=== PATIENT | female | born 1985 | race American Indian/Alaskan Native ===

== ENCOUNTER 2017-08-19 08:43 | Inpatient (IN) | payer MEDICARE ==
[2017-08-19] MEDS ORDERED: TYLENOL PO ONE (11:42)
[2017-08-19] MEDS ORDERED: ZOFRAN IV ONE (11:42)
[2017-08-19] MEDS ORDERED: DILAUDID IV ONE ×3 (11:42→14:37)
[2017-08-19] MEDS ORDERED: BENADRYL PO ONE (11:42)
--- NOTE | 2017-08-19 11:43 | Emergency Department Report ---
ED General Adult HPI - General Chief complaint: Sickle Cell Crisis Stated complaint: SICKLE CELL Time Seen by Provider: 08/19/17 11:11 Source: patient, RN notes reviewed Mode of arrival: Ambulatory Limitations: No Limitations - History of Present Illness Initial comments: This is a 31-year-old female who was previously known to this provider. Her hematology doctor is Dr. Hinton. She reports a past medical history of sickle cell disease history of cholecystectomy in the distant past. Presents to the ER complaining of sickle cell crisis. Complains of total body pain, aches and arthralgIas. Her symptoms have been going on for a week. They're getting worse. Pain increases with palpation, and it decreases with rest. Patient admits to cough, but denies urinary symptoms. She describes central chest pain. There is positive nausea and vomiting. There is intermittent shortness of breath. n. There is no leg swelling. Patient does not think that she's had a fever. -: Gradual, week(s) Location: chest, back, left, right, upper extremity, lower extremity Severity scale (0 -10): 9 Consistency: intermittent Improves with: medication, rest Worsens with: movement Associated Symptoms: chest pain, cough, malaise, weakness. denies: confusion, diaphoresis, fever/chills, headaches, loss of appetite, rash, seizure, shortness of breath, syncope - Related Data Allergies Allergy/AdvReac Type Severity Reaction Status Date / Time cefuroxime [From Ceftin] Allergy Hives Verified 08/19/17 09:00 morphine Allergy Vomiting Verified 08/19/17 09:00 ED Review of Systems ROS: Stated complaint: SICKLE CELL Other details as noted in HPI Comment: All other systems reviewed and negative ED Past Medical Hx - Past Medical History Previous Medical History?: Yes Hx Sickle Cell Disease: Yes Hx Asthma: Yes Additional medical history: Fibromyalgia - Surgical History Past Surgical History?: Yes Hx Cholecystectomy: Yes Additional Surgical History: tubal ligation. tonsillectomy. port to left chest (current). port to right chest (discontinued) - Social History Smoking Status: Light Tobacco Smoker Substance Use Type: None ED Physical Exam - General Limitations: No Limitations General appearance: alert, in no apparent distress - Head Head exam: Present: atraumatic, normocephalic - Eye Eye exam: Present: normal appearance, EOMI. Absent: nystagmus - ENT ENT exam: Present: normal exam, normal orophraynx, mucous membranes moist, normal external ear exam - Neck Neck exam: Present: normal inspection, full ROM - Respiratory Respiratory exam: Present: normal lung sounds bilaterally, chest wall tenderness. Absent: respiratory distress - Cardiovascular Cardiovascular Exam: Present: regular rate, normal rhythm, normal heart sounds. Absent: systolic murmur, diastolic murmur, rubs, gallop - GI/Abdominal GI/Abdominal exam: Present: soft, normal bowel sounds. Absent: distended, tenderness, guarding, rebound, rigid, pulsatile mass - Extremities Exam Extremities exam: Present: normal inspection, full ROM, normal capillary refill , other (there is no palpable cord. There is negative Homans sign. There is reproducible along bony tenderness. Compartments are soft.). Absent: pedal edema, joint swelling, calf tenderness - Back Exam Back exam: Present: normal inspection, full ROM, paraspinal tenderness, vertebral tenderness. Absent: tenderness, CVA tenderness (R) - Neurological Exam Neurological exam: Present: alert, oriented X3, CN II-XII intact, other ( Extraocular movements intact. Tongue midline. No facial droop. Facial sensation intact to light touch in the V1, V2, V3 distribution bilaterally. 5 and 5 strength in 4 extremities.. Sensation is intact to light touch in 4 extremities.). Absent: motor sensory deficit - Psychiatric Psychiatric exam: Present: normal affect, normal mood - Skin Skin exam: Present: warm, dry, intact, normal color. Absent: rash ED Course Vital Signs 08/19/17 08/19/17 08/19/17 09:00 11:06 11:15 Temperature 99.2 F Pulse Rate 91 H Respiratory 18 Rate Blood Pressure 107/66 114/76 108/70 Blood Pressure [Left] O2 Sat by Pulse 99 100 Oximetry 08/19/17 08/19/17 08/19/17 11:27 11:31 11:45 Temperature 99.2 F Pulse Rate 70 Respiratory 20 Rate Blood Pressure 101/55 112/74 Blood Pressure 108/70 [Left] O2 Sat by Pulse 100 98 100 Oximetry 08/19/17 08/19/17 08/19/17 12:00 12:15 12:31 Temperature Pulse Rate Respiratory Rate Blood Pressure 121/79 109/61 105/61 Blood Pressure [Left] O2 Sat by Pulse 100 99 100 Oximetry 08/19/17 08/19/17 08/19/17 12:45 13:01 13:15 Temperature Pulse Rate Respiratory Rate Blood Pressure 105/61 117/76 112/73 Blood Pressure [Left] O2 Sat by Pulse 100 100 97 Oximetry - Reevaluation(s) Reevaluation #1: 08/19/17 13:53 D-dimer negative. Still having pain. Additional hydromorphone ordered for pain. Reevaluation #2: 08/19/17 14:38 X-ray of the chest is clear. Still having persistent pain. Still having nausea. Patient will be admitted to the hospital for sickle cell crisis. Reevaluation #3: 08/19/17 14:40 Dr. Castillo accepted the patient to the medical service. ED Medical Decision Making - Lab Data Result diagrams: 08/19/17 13:12 08/19/17 13:12 Vital Signs 08/19/17 08/19/17 09:00 11:27 Temperature 99.2 F 99.2 F Pulse Rate 91 H 70 Respiratory 18 20 Rate Blood Pressure 107/66 Blood Pressure 108/70 [Left] O2 Sat by Pulse 99 100 Oximetry Lab Results 08/19/17 08/19/17 08/19/17 Range/Units 13:12 13:12 13:12 WBC 14.7 H (4.5-11.0) K/mm3 RBC 4.58 (3.65-5.03) M/mm3 Hgb 8.8 L (10.1-14.3) gm/dl Hct 26.5 L (30.3-42.9) % MCV 58 L (79-97) fl MCH 19 L (28-32) pg MCHC 33 (30-34) % RDW 25.4 H (13.2-15.2) % Plt Count 212 (140-440) K/mm3 Percent Retic 1.77 (0.78-2.58) % PT 14.0 (12.2-14.9) Sec. INR 1.03 (0.87-1.13) APTT 72.2 H* (24.2-36.6) Sec. D-Dimer (0-234) ng/mlDDU Lactate Dehydrogenase (91-180) units/L Total Creatine Kinase (30-135) units/L CK-MB (CK-2) (0.0-4.0) ng/mL CK-MB (CK-2) Rel Index (0-4) Troponin T (0.00-0.029) ng/mL HCG, Qual Negative (Negative) 08/19/17 08/19/17 08/19/17 Range/Units 13:12 13:12 13:12 WBC (4.5-11.0) K/mm3 RBC (3.65-5.03) M/mm3 Hgb (10.1-14.3) gm/dl Hct (30.3-42.9) % MCV (79-97) fl MCH (28-32) pg MCHC (30-34) % RDW (13.2-15.2) % Plt Count (140-440) K/mm3 Percent Retic (0.78-2.58) % PT (12.2-14.9) Sec. INR (0.87-1.13) APTT (24.2-36.6) Sec. D-Dimer < 135.00 (0-234) ng/mlDDU Lactate Dehydrogenase 125 (91-180) units/L Total Creatine Kinase 31 (30-135) units/L CK-MB (CK-2) < 1.0 (0.0-4.0) ng/mL CK-MB (CK-2) Rel Index 3.2 (0-4) Troponin T < 0.010 (0.00-0.029) ng/mL HCG, Qual (Negative) - EKG Data -: EKG Interpreted by Co EKG shows normal: sinus rhythm, axis, intervals, QRS complexes, ST-T waves - EKG Data When compared to previous EKG there are: previous EKG unavailable - Radiology Data Radiology results: pending - Medical Decision Making Differential diagnosis, including but not limited to: Sickle cell crisis, pulmonary embolus, pneumonia, acute lung injury/acute chest syndrome Assessment and plan: 21-year-old female, sickle cell patient, looks uncomfortable, low-grade oral temperature, refused rectal temperature would sickle cell crisis, and chest pain and chest wall pain. Patient's pain will be treated aggressively. EKG is initially unremarkable. Laboratory studies pending. D-dimer is pending. Low risk by well's criteria. perc negative. Low risk by Heart score, FRANCISCO score, assuming negative troponin. Critical care attestation.: If time is entered above; I have spent that time in minutes in the direct care of this critically ill patient, excluding procedure time. ED Disposition Clinical Impression: Sickle cell pain crisis, Nausea and vomiting Disposition: 09 OP ADMIT IP TO THIS HOSP Is pt being admited?: Yes Does the pt Need Aspirin: Yes Condition: Good Referrals: PRIMARY CARE,MD [Primary Care Provider] - 3-5 Days
[2017-08-19] MEDS ORDERED: DILAUDID ONE ×3 (13:02→13:59)
[2017-08-19] MEDS: D5NS 0.2% 1,000 ML IV SCH ×2 (13:10→18:05)
[2017-08-19 13:27] LABS: Hematocrit 26.5 % (30.3-42.9); Hemoglobin 8.8 gm/dl (10.1-14.3); Mean Corpuscular HGB Conc 33 % (30-34); Platelet Count 212 K/mm3 (140-440); Red Blood Count 4.58 M/mm3 (3.65-5.03)
[2017-08-19 13:28] LABS: Mean Corpuscular Hemoglobin 19 pg (28-32); Mean Corpuscular Volume 58 fl (79-97); Red Cell Distribution Width 25.4 % (13.2-15.2)
[2017-08-19 13:36] LABS: INR 1.03 (0.87-1.13)
[2017-08-19 13:40] LABS: Partial Thromboplastin Time 72.2 Sec. (24.2-36.6)
[2017-08-19 13:46] LABS: Creatine Kinase MB < 1.0 ng/mL (0.0-4.0)
[2017-08-19 13:59] LABS: Total Cells Counted 100
[2017-08-19 14:00] LABS: Anisocytosis 2+; Hypochromasia 2+; Poikilocytosis 3+
[2017-08-19 14:01] LABS: Stomatocytes 1+; Target Cells 1+; Tear Drop Cells Few
[2017-08-19 14:03] LABS: BUN/Creatinine Ratio 33; Blood Urea Nitrogen 13 mg/dL (7-17); Calcium 7.8 mg/dL (8.4-10.2); Hemolysis Index 1; Large Platelets Few; Platelet Estimate Cons
[2017-08-19] MEDS ORDERED: REGLAN IV ONE (14:37)
[2017-08-19] MEDS ORDERED: BABY ASPIRIN PO ONE (14:40)
[2017-08-19] MEDS ORDERED: ZOFRAN IV PRN (14:49)
[2017-08-19] MEDS ORDERED: PERCOCET 5/325 PO PRN ×2 (14:49→21:00)
[2017-08-19] MEDS ORDERED: SODIUM CHLORIDE FLUSH SYRINGE 10 ML IV PRN (14:49)
[2017-08-19] MEDS ORDERED: PROVENTIL IH PRN (14:49)
[2017-08-19] MEDS ORDERED: TYLENOL PO PRN (14:49)
--- NOTE | 2017-08-19 14:49 | History and Physical Report ---
History of Present Illness Chief complaint: Im hurting all over History of present illness: 31 YO Female with SCD, Obesity, Fibromyalgia presents to ED for evaluation. Pt states that she has experienced generalized body pain over the past 1 week, with worsening symptoms over the past 3 days. Pt acknowledges nausea, and body aches. Pt ran out of pain medication 3 days ago. Pt denies fever, chills, CP, Palpitations, Syncope, BRBPR, unintentional weight loss, unilateral leg swelling , calf pain, hemoptysis, night sweats, bone pain, shortness of breath, syncope, recent ill contacts, or foreign travel. Pt seen and evaluated in ED and found to have sickle cell crisis as well as SIRS. Pt admitted to medical floor. Past History Past Medical History: other (Fibromyalgia, SCD, Asthma) Past Surgical History: cholecystectomy, tonsillectomy, Other (tubal ligation, Left Chest port) Social history: single, smoking Family history: hypertension Medications and Allergies Allergies Allergy/AdvReac Type Severity Reaction Status Date / Time cefuroxime [From Ceftin] Allergy Hives Verified 08/19/17 09:00 morphine Allergy Vomiting Verified 08/19/17 09:00 Active Meds: Active Medications Dextrose/Sodium Chloride (D5ns 0.2%) 1,000 mls @ 250 mls/hr IV DIRECT BOOM Last Admin: 08/19/17 13:10 Dose: 250 mls/hr Review of Systems Constitutional: chronic pain, no weight loss, no weight gain, no fever, no chills Ears, nose, mouth and throat: no ear pain, no ear discharge, no tinnitis, no decreased hearing, no nose pain, no nasal congestion, no nasal discharge Breasts: no change in shape, no swelling, no mass Cardiovascular: no chest pain, no orthopnea, no palpitations, no rapid/ irregular heart beat, no edema Respiratory: no cough, no cough with sputum, no excessive sputum, no hemoptysis , no shortness of breath Gastrointestinal: nausea, no vomiting Genitourinary Female: no pelvic pain, no flank pain, no menorrhagia, no dysuria , no urinary frequency, no urgency Rectal: no pain, no incontinence Musculoskeletal: no neck stiffness, no neck pain, no shooting arm pain, no arm numbness/tingling, no low back pain, no shooting leg pain, no leg numbness/ tingling Integumentary: no rash, no pruritis, no redness, no sores, no wounds, no jaundice Neurological: no transient paralysis, no paralysis, no weakness, no parathesias , no numbness, no tingling, no seizures, no syncope Psychiatric: no anxiety, no memory loss, no change in sleep habits, no sleep disturbances, no insomnia, no hypersomnia, no change in appetite, no change in libido Endocrine: no cold intolerance, no heat intolerance, no polyphagia, no excessive thirst, no polydipsia, no weight change Hematologic/Lymphatic: no easy bruising, no easy bleeding, no lymphadenopathy Allergic/Immunologic: no urticaria, no allergic rhinitis, no wheezing, no persistent infections, no anaphylaxis Exam - Constitutional Vitals: Temp Pulse Resp BP Pulse Ox 99.2 F 70 20 112/73 97 08/19/17 11:27 08/19/17 11:27 08/19/17 11:27 08/19/17 13:15 08/19/17 13:15 General appearance: Present: mild distress - EENT Eyes: Present: PERRL ENT: hearing intact, clear oral mucosa - Neck Neck: Present: supple, normal ROM - Respiratory Respiratory effort: normal Respiratory: bilateral: CTA - Cardiovascular Heart Sounds: Present: S1 & S2. Absent: rub, click - Extremities Extremities: pulses symmetrical, No edema Peripheral Pulses: within normal limits - Abdominal General gastrointestinal: Present: soft, non-tender, non-distended, normal bowel sounds Female genitourinary: Present: normal - Integumentary Integumentary: Present: clear, warm, dry - Musculoskeletal Musculoskeletal: gait normal, strength equal bilaterally - Psychiatric Psychiatric: appropriate mood/affect, intact judgment & insight - Neurologic Neurologic: CNII-XII intact, moves all extremities Results - Labs CBC & Chem 7: 08/19/17 13:12 08/19/17 13:12 Labs: Abnormal lab results 08/19/17 08/19/17 08/19/17 Range/Units 13:12 13:12 13:12 WBC 14.7 H (4.5-11.0) K/mm3 Hgb 8.8 L (10.1-14.3) gm/dl Hct 26.5 L (30.3-42.9) % MCV 58 L (79-97) fl MCH 19 L (28-32) pg RDW 25.4 H (13.2-15.2) % Seg Neutrophils # Man 9.8 H (1.8-7.7) K/mm3 APTT 72.2 H* (24.2-36.6) Sec. Sodium 134 L (137-145) mmol/L Potassium 3.2 L (3.6-5.0) mmol/L Creatinine 0.4 L (0.7-1.2) mg/dL Glucose 207 H (65-100) mg/dL Calcium 7.8 L (8.4-10.2) mg/dL Assessment and Plan - Patient Problems (1) Sickle cell pain crisis Current Visit: Yes Status: Acute Plan to address problem: IVF resuscitation, pain control, hematology consulted, resume prehospital therapy with hydroxyurea, folic acid as per hematology service. (2) SIRS (systemic inflammatory response syndrome) Current Visit: Yes Status: Acute Plan to address problem: Empiric IV antibiotics, CBC, Chest X ray, repeat CBC (3) Nicotine dependence unspecified, with withdrawal Current Visit: Yes Status: Acute Qualifiers: Nicotine product type: cigarettes Qualified Code(s): F17.213 - Nicotine dependence, cigarettes, with withdrawal Plan to address problem: supportive care, smoking cessation counseling (4) DVT prophylaxis Current Visit: Yes Status: Acute Plan to address problem: SCD to ble while in bed
[2017-08-19] MEDS ORDERED: NACL 0.9% 1000 ML 1,000 ML IV ONE ×2 (14:51)
--- NOTE | 2017-08-19 14:53 | XRay Report ---
AP CHEST: HISTORY: chest pain No comparison. A left [id number] terminates at the cavoatrial junction. AP view of the chest demonstrates a normal mediastinal and cardiac contour with clear lungs and normal bony and soft tissue structures. IMPRESSION: Unremarkable AP chest.
[2017-08-19] MEDS ORDERED: NACL 0.45% 1000 ML 1,000 ML IV SCH (15:00)
[2017-08-19] MEDS ORDERED: OxyCONTIN PO PRN (20:07)
[2017-08-19] MEDS ORDERED: NON-FORMULARY (Oxycodone Hcl/Acetaminophen [Percocet 10/325 Mg] 1 EACH) PO PRN (20:07)
[2017-08-19] MEDS ORDERED: ROXICODONE PO PRN (20:35)
--- NOTE | 2017-08-19 22:21 | Consultation ---
History of Present Illness - Reason for Consult Consult date: 08/19/17 SCD/sickel pain. Requesting physician: RADHA GARZA - History of Present Illness Thank you for this consult, patient seen/examined, record reviewed, case d/w her.Patient presented to the Er with pain crisis, admitted from sxs management .WBC elevated.she will need pain management, hydration, monitor labs. Past History Past Medical History: other (Fibromyalgia, SCD, Asthma) Past Surgical History: cholecystectomy, tonsillectomy, Other (tubal ligation, Left Chest port) Social history: single, smoking Family history: hypertension Medications and Allergies Allergies Allergy/AdvReac Type Severity Reaction Status Date / Time cefuroxime [From Ceftin] Allergy Hives Verified 08/19/17 09:00 morphine Allergy Vomiting Verified 08/19/17 09:00 Home Medications Medication Instructions Recorded Confirmed Last Taken Type Cyanocobalamin [Vitamin B-12] 1,000 mcg SUB-Q DAILY 08/19/17 08/19/17 Unknown History Folic Acid [Folvite] 1 mg PO QDAY 08/19/17 08/19/17 Unknown History Hydroxyurea [Hydrea] 1,000 mg PO BID 08/19/17 08/19/17 Unknown History Oxycodone HCl/Acetaminophen 1 each PO TID PRN 08/19/17 08/19/17 Unknown History [Percocet 10/325 mg] Pregabalin [Lyrica] 75 mg PO BID 08/19/17 08/19/17 Unknown History Promethazine [Phenergan TAB] 25 mg PO BID PRN 08/19/17 08/19/17 Unknown History oxyCODONE ER [OxyCONTIN ER TAB] 10 mg PO Q8H PRN 08/19/17 08/19/17 Unknown History Active Meds: Active Medications Acetaminophen (Tylenol) 650 mg PO Q4H PRN PRN Reason: Pain MILD(1-3)/Fever >100.5/[place] Albuterol (Proventil) 2.5 mg IH Q4HRT PRN PRN Reason: Shortness Of Breath Cyanocobalamin (Vitamin B-12) 1,000 mcg SUB-Q DAILY BOOM Folic Acid (Folvite) 1 mg PO QDAY BOOM Hydroxyurea (Hydrea) 1,000 mg PO BID BOOM Dextrose/Sodium Chloride (D5ns 0.2%) 1,000 mls @ 250 mls/hr IV DIRECT BOOM Last Admin: 08/19/17 18:05 Dose: 250 mls/hr Sodium Chloride (Nacl 0.45% 1000 Ml) 1,000 mls @ 150 mls/hr IV DIRECT BOOM Levofloxacin/Dextrose (Levaquin 500mg/100ml) 500 mg in 100 mls @ 100 mls/hr IV Q24HR BOOM; Protocol Stop: 08/20/17 23:59 Ondansetron HCl (Zofran) 4 mg IV Q8H PRN PRN Reason: Nausea And Vomiting Oxycodone HCl (Oxycontin) 10 mg PO Q8H PRN PRN Reason: Pain Oxycodone HCl (Roxicodone) 5 mg PO TID PRN PRN Reason: Pain, Moderate (4-6) Oxycodone/Acetaminophen (Percocet 5/325) 1 tab PO TID PRN PRN Reason: Pain, Moderate (4-6) Pregabalin (Lyrica) 75 mg PO BID BOOM Promethazine HCl (Phenergan) 25 mg PO BID PRN PRN Reason: Nausea Sodium Chloride (Sodium Chloride Flush Syringe 10 Ml) 10 ml IV BID BOOM Sodium Chloride (Sodium Chloride Flush Syringe 10 Ml) 10 ml IV PRN PRN PRN Reason: LINE FLUSH Review of Systems Constitutional: chronic pain Breasts: deferred Musculoskeletal: low back pain Exam - Constitutional Vitals: Temp Pulse Resp BP Pulse Ox 98.0 F 73 20 90/58 100 08/19/17 19:17 08/19/17 19:17 08/19/17 20:15 08/19/17 19:17 08/19/17 21:14 General appearance: Present: mild distress, well-nourished - EENT Eyes: Present: PERRL ENT: hearing intact, clear oral mucosa - Neck Neck: Present: supple, normal ROM - Respiratory Respiratory effort: normal Respiratory: bilateral: CTA - Cardiovascular Heart Sounds: Present: S1 & S2. Absent: rub, click - Extremities Extremities: pulses symmetrical, No edema Peripheral Pulses: within normal limits - Abdominal General gastrointestinal: Present: soft, non-tender, non-distended, normal bowel sounds Female genitourinary: Present: deferred - Rectal Rectal Exam: deferred - Integumentary Integumentary: Present: clear, warm, dry - Musculoskeletal Musculoskeletal: gait normal, strength equal bilaterally - Psychiatric Psychiatric: appropriate mood/affect, intact judgment & insight - Neurologic Neurologic: CNII-XII intact, moves all extremities Results - Labs CBC & Chem 7: 08/19/17 13:12 08/19/17 13:12 Labs: Abnormal lab results 08/19/17 08/19/17 08/19/17 Range/Units 13:12 13:12 13:12 WBC 14.7 H (4.5-11.0) K/mm3 Hgb 8.8 L (10.1-14.3) gm/dl Hct 26.5 L (30.3-42.9) % MCV 58 L (79-97) fl MCH 19 L (28-32) pg RDW 25.4 H (13.2-15.2) % Seg Neutrophils # Man 9.8 H (1.8-7.7) K/mm3 APTT 72.2 H* (24.2-36.6) Sec. Sodium 134 L (137-145) mmol/L Potassium 3.2 L (3.6-5.0) mmol/L Creatinine 0.4 L (0.7-1.2) mg/dL Glucose 207 H (65-100) mg/dL Calcium 7.8 L (8.4-10.2) mg/dL Assessment and Plan - Patient Problems (1) Sickle cell pain crisis Current Visit: Yes Status: Acute Plan to address problem: Pain control. (2) Anemia Current Visit: Yes Status: Acute Plan to address problem: Monitor labs daily, and replacement when indicated. (3) Dehydration Current Visit: Yes Status: Acute Plan to address problem: Hydration
[2017-08-19] MEDS ORDERED: DILAUDID IV PRN (22:32)
[2017-08-19] MEDS: SODIUM CHLORIDE FLUSH SYRINGE 10 ML IV SCH (22:56)
[2017-08-19] MEDS: LYRICA PO SCH (22:56)
[2017-08-19] MEDS: HYDREA PO SCH (23:30)
[2017-08-20] MEDS: D5NS 0.2% 1,000 ML IV SCH ×5 (00:44→23:55)
[2017-08-20] MEDS: PHENERGAN PO PRN ×3 (00:52→22:00)
[2017-08-20] MEDS: DILAUDID IV PRN ×5 (04:52→21:49)
--- NOTE | 2017-08-20 09:12 | Progress Note ---
Assessment and Plan Assessment and plan: --Sickle cell pain crisis; Continue IV fluids, oxygen, pain management, folic acid and hydroxyurea Hematology following --SIRS [systemic inflammatory response syndrome] continue IV antibiotics, follow cultures, chest x-ray negative --Sickle cell anemia; patient's hemoglobin is 8.8, closely monitor Transfuse as needed --Leukocytosis, rule out sepsis, continue empiric antibiotics --Ongoing tobacco use; smoking cessation counseling done Nicotine patch as needed --DVT prophylaxis; Lovenox Follow hematology consultation and recommendations Possible discharge in 1-2 days if patient is stable History Interval history: Patient seen and examined medical records reviewed Admitted with sickle cell crisis, on pain medications and supportive care Patient complains of generalized body pains Reports that her medications are not working Alert awake oriented 3 not in acute distress Vital signs stable Hospitalist Physical - Constitutional Vitals: Temp Pulse Resp BP Pulse Ox 98.9 F 74 18 104/76 99 08/20/17 07:40 08/20/17 07:40 08/20/17 07:41 08/20/17 07:40 08/20/17 07:40 General appearance: Present: no acute distress, well-nourished, obese - EENT Eyes: Present: PERRL, EOM intact - Neck Neck: Present: supple, normal ROM - Respiratory Respiratory effort: normal Respiratory: negative: rales, rhonchi, wheezing - Cardiovascular Rhythm: regular Heart Sounds: Present: S1 & S2 - Extremities Extremities: no ischemia, No edema - Abdominal General gastrointestinal: soft, non-tender, non-distended, normal bowel sounds - Integumentary Integumentary: Present: clear, warm - Psychiatric Psychiatric: appropriate mood/affect, cooperative - Neurologic Neurologic: CNII-XII intact, moves all extremities Results - Labs CBC & Chem 7: 08/19/17 13:12 08/19/17 13:12 Labs: Laboratory Last Values WBC 14.7 K/mm3 (4.5-11.0) H 08/19/17 13:12 RBC 4.58 M/mm3 (3.65-5.03) 08/19/17 13:12 Hgb 8.8 gm/dl (10.1-14.3) L 08/19/17 13:12 Hct 26.5 % (30.3-42.9) L 08/19/17 13:12 MCV 58 fl (79-97) L 08/19/17 13:12 MCH 19 pg (28-32) L 08/19/17 13:12 MCHC 33 % (30-34) 08/19/17 13:12 RDW 25.4 % (13.2-15.2) H 08/19/17 13:12 Plt Count 212 K/mm3 (140-440) 08/19/17 13:12 Add Manual Diff Complete 08/19/17 13:12 Total Counted 100 08/19/17 13:12 Seg Neuts % (Manual) 67.0 % (40.0-70.0) 08/19/17 13:12 Band Neutrophils % 0 % 08/19/17 13:12 Lymphocytes % (Manual) 25.0 % (13.4-35.0) 08/19/17 13:12 Reactive Lymphs % (Man) 0 % 08/19/17 13:12 Monocytes % (Manual) 5.0 % (0.0-7.3) 08/19/17 13:12 Eosinophils % (Manual) 2.0 % (0.0-4.3) 08/19/17 13:12 Basophils % (Manual) 1.0 % (0.0-1.8) 08/19/17 13:12 Metamyelocytes % 0 % 08/19/17 13:12 Myelocytes % 0 % 08/19/17 13:12 Promyelocytes % 0 % 08/19/17 13:12 Blast Cells % 0 % 08/19/17 13:12 Nucleated RBC % Not Reportable 08/19/17 13:12 Seg Neutrophils # Man 9.8 K/mm3 (1.8-7.7) H 08/19/17 13:12 Band Neutrophils # 0.0 K/mm3 08/19/17 13:12 Lymphocytes # (Manual) 3.7 K/mm3 (1.2-5.4) 08/19/17 13:12 Abs React Lymphs (Man) 0.0 K/mm3 08/19/17 13:12 Monocytes # (Manual) 0.7 K/mm3 (0.0-0.8) 08/19/17 13:12 Eosinophils # (Manual) 0.3 K/mm3 (0.0-0.4) 08/19/17 13:12 Basophils # (Manual) 0.1 K/mm3 (0.0-0.1) 08/19/17 13:12 Metamyelocytes # 0.0 K/mm3 08/19/17 13:12 Myelocytes # 0.0 K/mm3 08/19/17 13:12 Promyelocytes # 0.0 K/mm3 08/19/17 13:12 Blast Cells # 0.0 K/mm3 08/19/17 13:12 WBC Morphology Not Reportable 08/19/17 13:12 Hypersegmented Neuts Not Reportable 08/19/17 13:12 Hyposegmented Neuts Not Reportable 08/19/17 13:12 Hypogranular Neuts Not Reportable 08/19/17 13:12 Smudge Cells Not Reportable 08/19/17 13:12 Toxic Granulation Not Reportable 08/19/17 13:12 Toxic Vacuolation Not Reportable 08/19/17 13:12 Dohle Bodies Not Reportable 08/19/17 13:12 Pelger-Huet Anomaly Not Reportable 08/19/17 13:12 Jeanne Rods Not Reportable 08/19/17 13:12 Platelet Estimate Cons 08/19/17 13:12 Clumped Platelets Not Reportable 08/19/17 13:12 Plt Clumps, EDTA Not Reportable 08/19/17 13:12 Large Platelets Few 08/19/17 13:12 Giant Platelets Not Reportable 08/19/17 13:12 Platelet Satelliting Not Reportable 08/19/17 13:12 Plt Morphology Comment Not Reportable 08/19/17 13:12 RBC Morphology Not Reportable 08/19/17 13:12 Dimorphic RBCs Not Reportable 08/19/17 13:12 Polychromasia Not Reportable 08/19/17 13:12 Hypochromasia 2+ 08/19/17 13:12 Poikilocytosis 3+ 08/19/17 13:12 Anisocytosis 2+ 08/19/17 13:12 Microcytosis Not Reportable 08/19/17 13:12 Macrocytosis Not Reportable 08/19/17 13:12 Spherocytes Not Reportable 08/19/17 13:12 Pappenheimer Bodies Not Reportable 08/19/17 13:12 Sickle Cells Not Reportable 08/19/17 13:12 Target Cells 1+ 08/19/17 13:12 Tear Drop Cells Few 08/19/17 13:12 Ovalocytes Not Reportable 08/19/17 13:12 Stomatocytes 1+ 08/19/17 13:12 Helmet Cells Not Reportable 08/19/17 13:12 [place] Bodies Not Reportable 08/19/17 13:12 [place] Rings Not Reportable 08/19/17 13:12 Chand[place] Cells Not Reportable 08/19/17 13:12 Bite Cells Not Reportable 08/19/17 13:12 Crenated Cell Not Reportable 08/19/17 13:12 Elliptocytes Not Reportable 08/19/17 13:12 Acanthocytes (Spur) Not Reportable 08/19/17 13:12 Rouleaux Not Reportable 08/19/17 13:12 Hemoglobin C Crystals Not Reportable 08/19/17 13:12 Schistocytes Not Reportable 08/19/17 13:12 Malaria parasites Not Reportable 08/19/17 13:12 Percent Retic 1.77 % (0.78-2.58) 08/19/17 13:12 Steven Bodies Not Reportable 08/19/17 13:12 Hem Pathologist Commnt No 08/19/17 13:12 PT 14.0 Sec. (12.2-14.9) 08/19/17 13:12 INR 1.03 (0.87-1.13) 08/19/17 13:12 APTT 72.2 Sec. (24.2-36.6) H* 08/19/17 13:12 D-Dimer < 135.00 ng/mlDDU (0-234) 08/19/17 13:12 Sodium 134 mmol/L (137-145) L 08/19/17 13:12 Potassium 3.2 mmol/L (3.6-5.0) L 08/19/17 13:12 Chloride 100.7 mmol/L (98-107) 08/19/17 13:12 Carbon Dioxide 22 mmol/L (22-30) 08/19/17 13:12 Anion Gap 15 mmol/L 08/19/17 13:12 BUN 13 mg/dL (7-17) 08/19/17 13:12 Creatinine 0.4 mg/dL (0.7-1.2) L 08/19/17 13:12 Estimated GFR > 60 ml/min 08/19/17 13:12 BUN/Creatinine Ratio 33 % 08/19/17 13:12 Glucose 207 mg/dL (65-100) H 08/19/17 13:12 Calcium 7.8 mg/dL (8.4-10.2) L 08/19/17 13:12 Iron 39 ug/dL (37-170) 08/20/17 00:10 Ferritin 8.5 ng/mL (13.0-400.0) L 08/20/17 00:10 Lactate Dehydrogenase 125 units/L (91-180) 08/19/17 13:12 Total Creatine Kinase 31 units/L (30-135) 08/19/17 13:12 CK-MB (CK-2) < 1.0 ng/mL (0.0-4.0) 08/19/17 13:12 CK-MB (CK-2) Rel Index 3.2 (0-4) 08/19/17 13:12 Troponin T < 0.010 ng/mL (0.00-0.029) 08/19/17 15:09 HCG, Qual Negative (Negative) 08/19/17 13:12
[2017-08-20] MEDS ORDERED: LEVAQUIN 500MG/100ML 500 MG/100 ML BAG IV SCH (10:00)
[2017-08-20] MEDS: HYDREA PO SCH ×2 (11:20→21:58)
[2017-08-20] MEDS: LYRICA PO SCH ×2 (11:20→21:57)
[2017-08-20] MEDS: FOLVITE PO SCH (11:24)
[2017-08-20] MEDS: VITAMIN B-12 SUB-Q SCH (12:57)
[2017-08-20] MEDS: SODIUM CHLORIDE FLUSH SYRINGE 10 ML IV SCH ×2 (13:11→22:00)
--- NOTE | 2017-08-20 21:28 | Progress Note ---
Assessment and Plan - Patient Problems (1) Sickle cell pain crisis Current Visit: Yes Status: Acute Plan to address problem: Pain control. (2) Anemia Current Visit: Yes Status: Acute Plan to address problem: Monitor labs daily, and replacement when indicated. (3) Dehydration Current Visit: Yes Status: Acute Plan to address problem: Hydration Subjective Date of service: 08/20/17 Interval history: Patient seen/examined, resting in bed, c/o still nauseated with q12 anti emetic.pain is a bit better. Objective - Constitutional Vitals: Vital Signs - 12hr 08/20/17 08/20/17 14:47 15:54 Temperature 98.0 F 98.2 F Pulse Rate 82 67 Respiratory 20 Rate Blood Pressure 125/79 100/71 O2 Sat by Pulse 100 100 Oximetry General appearance: Present: no acute distress, well-nourished - EENT Eyes: PERRL, EOM intact ENT: hearing intact, clear oral mucosa Ears: bilateral: normal - Neck Neck: supple, normal ROM - Respiratory Respiratory effort: normal Respiratory: bilateral: CTA - Breasts Breasts: deferred - Cardiovascular Rhythm: regular Heart Sounds: Present: S1 & S2. Absent: gallop, rub Extremities: pulses intact, No edema, normal color, Full ROM - Gastrointestinal General gastrointestinal: Present: soft, non-tender, non-distended, normal bowel sounds - Genitourinary Female genitourinary: deferred - Integumentary Integumentary: clear, warm, dry - Musculoskeletal Musculoskeletal: 1, strength equal bilaterally - Neurologic Neurologic: moves all extremities - Psychiatric Psychiatric: memory intact, appropriate mood/affect, intact judgment & insight - Labs CBC & Chem 7: 08/19/17 13:12 08/19/17 13:12 Labs: Abnormal lab results 08/20/17 Range/Units 00:10 Ferritin 8.5 L (13.0-400.0) ng/mL
[2017-08-20] MEDS: LOVENOX SUB-Q SCH (21:58)
[2017-08-21] MEDS: RESTORIL PO PRN ×2 (00:01→21:12)
[2017-08-21] MEDS: DILAUDID IV PRN ×6 (01:52→22:38)
[2017-08-21] MEDS: D5NS 0.2% 1,000 ML IV SCH ×3 (04:47→18:29)
[2017-08-21 06:47] LABS: Hematocrit 28.8 % (30.3-42.9); Hemoglobin 9.7 gm/dl (10.1-14.3); Mean Corpuscular HGB Conc 34 % (30-34); Platelet Count 245 K/mm3 (140-440); Red Blood Count 5.03 M/mm3 (3.65-5.03)
[2017-08-21 06:51] LABS: Mean Corpuscular Hemoglobin 19 pg (28-32); Mean Corpuscular Volume 57 fl (79-97); Red Cell Distribution Width 25.7 % (13.2-15.2)
[2017-08-21 07:05] LABS: BUN/Creatinine Ratio 10; Blood Urea Nitrogen 3 mg/dL (7-17); Calcium 8.7 mg/dL (8.4-10.2); Hemolysis Index 50
[2017-08-21 09:11] LABS: Anisocytosis 2+; Basophils % (Manual) 0 % (0.0-1.8); Hypochromasia 2+; Poikilocytosis 3+; Target Cells 2+; Total Cells Counted 100
[2017-08-21 09:12] LABS: Stomatocytes 1+
[2017-08-21 09:13] LABS: Large Platelets Few; Platelet Estimate Cons; Tear Drop Cells Few
[2017-08-21] MEDS: PHENERGAN PO PRN (10:20)
[2017-08-21] MEDS: LYRICA PO SCH ×2 (10:30→21:09)
[2017-08-21] MEDS: FOLVITE PO SCH (10:30)
[2017-08-21] MEDS: VITAMIN B-12 SUB-Q SCH (10:30)
[2017-08-21] MEDS: HYDREA PO SCH ×2 (10:30→21:10)
--- NOTE | 2017-08-21 10:35 | Progress Note ---
Assessment and Plan Assessment and plan: --Sickle cell pain crisis; Continue IV fluids, oxygen, pain management, folic acid and hydroxyurea Hematology following --SIRS [systemic inflammatory response syndrome] Received empiric antibiotics, follow cultures, chest x-ray negative --Sickle cell anemia; patient's hemoglobin is 8.8, closely monitor Transfuse as needed --Leukocytosis, rule out sepsis, continue empiric antibiotics --Ongoing tobacco use; smoking cessation counseling done Nicotine patch as needed --DVT prophylaxis; Lovenox Follow hematology consultation and recommendations Possible discharge in 1-2 days if patient is stable History Interval history: Patient seen and evaluated in her room this morning medical records reviewed No new events reported by the nursing staff Patient complains of severe pain and reports that her pain medications are not working On 2 mg of Dilaudid every 4 hours Patient is alert awake oriented 3 Vital signs reviewed, Hospitalist Physical - Constitutional Vitals: Temp Pulse Resp BP Pulse Ox 98.0 F 122 H 20 125/83 93 08/21/17 07:50 08/21/17 07:50 08/21/17 07:50 08/21/17 07:50 08/21/17 07:50 General appearance: Present: no acute distress, well-nourished - EENT Eyes: Present: PERRL, EOM intact - Neck Neck: Present: supple, normal ROM - Respiratory Respiratory effort: normal Respiratory: bilateral: diminished, negative: rales, rhonchi, wheezing - Cardiovascular Rhythm: regular Heart Sounds: Present: S1 & S2 - Extremities Extremities: no ischemia, No edema - Abdominal General gastrointestinal: soft, non-tender, non-distended, normal bowel sounds - Integumentary Integumentary: Present: clear, warm - Psychiatric Psychiatric: appropriate mood/affect, cooperative - Neurologic Neurologic: CNII-XII intact, moves all extremities Results - Labs CBC & Chem 7: 08/21/17 06:25 08/21/17 06:25 Labs: Laboratory Last Values WBC 13.1 K/mm3 (4.5-11.0) H 08/21/17 06:25 RBC 5.03 M/mm3 (3.65-5.03) 08/21/17 06:25 Hgb 9.7 gm/dl (10.1-14.3) L 08/21/17 06:25 Hct 28.8 % (30.3-42.9) L 08/21/17 06:25 MCV 57 fl (79-97) L 08/21/17 06:25 MCH 19 pg (28-32) L 08/21/17 06:25 MCHC 34 % (30-34) 08/21/17 06:25 RDW 25.7 % (13.2-15.2) H 08/21/17 06:25 Plt Count 245 K/mm3 (140-440) 08/21/17 06:25 Add Manual Diff Complete 08/21/17 06:25 Total Counted 100 08/21/17 06:25 Seg Neuts % (Manual) 63.0 % (40.0-70.0) 08/21/17 06:25 Band Neutrophils % 0 % 08/21/17 06:25 Lymphocytes % (Manual) 33.0 % (13.4-35.0) 08/21/17 06:25 Reactive Lymphs % (Man) 0 % 08/21/17 06:25 Monocytes % (Manual) 2.0 % (0.0-7.3) 08/21/17 06:25 Eosinophils % (Manual) 2.0 % (0.0-4.3) 08/21/17 06:25 Basophils % (Manual) 0 % (0.0-1.8) 08/21/17 06:25 Metamyelocytes % 0 % 08/21/17 06:25 Myelocytes % 0 % 08/21/17 06:25 Promyelocytes % 0 % 08/21/17 06:25 Blast Cells % 0 % 08/21/17 06:25 Nucleated RBC % Not Reportable 08/21/17 06:25 Seg Neutrophils # Man 8.3 K/mm3 (1.8-7.7) H 08/21/17 06:25 Band Neutrophils # 0.0 K/mm3 08/21/17 06:25 Lymphocytes # (Manual) 4.3 K/mm3 (1.2-5.4) 08/21/17 06:25 Abs React Lymphs (Man) 0.0 K/mm3 08/21/17 06:25 Monocytes # (Manual) 0.3 K/mm3 (0.0-0.8) 08/21/17 06:25 Eosinophils # (Manual) 0.3 K/mm3 (0.0-0.4) 08/21/17 06:25 Basophils # (Manual) 0.0 K/mm3 (0.0-0.1) 08/21/17 06:25 Metamyelocytes # 0.0 K/mm3 08/21/17 06:25 Myelocytes # 0.0 K/mm3 08/21/17 06:25 Promyelocytes # 0.0 K/mm3 08/21/17 06:25 Blast Cells # 0.0 K/mm3 08/21/17 06:25 WBC Morphology Not Reportable 08/21/17 06:25 Hypersegmented Neuts Not Reportable 08/21/17 06:25 Hyposegmented Neuts Not Reportable 08/21/17 06:25 Hypogranular Neuts Not Reportable 08/21/17 06:25 Smudge Cells Not Reportable 08/21/17 06:25 Toxic Granulation Not Reportable 08/21/17 06:25 Toxic Vacuolation Not Reportable 08/21/17 06:25 Dohle Bodies Not Reportable 08/21/17 06:25 Pelger-Huet Anomaly Not Reportable 08/21/17 06:25 Jeanne Rods Not Reportable 08/21/17 06:25 Platelet Estimate Cons 08/21/17 06:25 Clumped Platelets Not Reportable 08/21/17 06:25 Plt Clumps, EDTA Not Reportable 08/21/17 06:25 Large Platelets Few 08/21/17 06:25 Giant Platelets Not Reportable 08/21/17 06:25 Platelet Satelliting Not Reportable 08/21/17 06:25 Plt Morphology Comment Not Reportable 08/21/17 06:25 RBC Morphology Not Reportable 08/21/17 06:25 Dimorphic RBCs Not Reportable 08/21/17 06:25 Polychromasia Not Reportable 08/21/17 06:25 Hypochromasia 2+ 08/21/17 06:25 Poikilocytosis 3+ 08/21/17 06:25 Anisocytosis 2+ 08/21/17 06:25 Microcytosis 2+ 08/21/17 06:25 Macrocytosis Not Reportable 08/21/17 06:25 Spherocytes Not Reportable 08/21/17 06:25 Pappenheimer Bodies Not Reportable 08/21/17 06:25 Sickle Cells Not Reportable 08/21/17 06:25 Target Cells 2+ 05/09/18 06:25 Tear Drop Cells Few 08/21/17 06:25 Ovalocytes Not Reportable 08/21/17 06:25 Stomatocytes 1+ 08/21/17 06:25 Helmet Cells Not Reportable 08/21/17 06:25 [place] Bodies Not Reportable 08/21/17 06:25 [place] Rings Not Reportable 08/21/17 06:25 Chandni Cells Not Reportable 08/21/17 06:25 Bite Cells Not Reportable 08/21/17 06:25 Crenated Cell Not Reportable 08/21/17 06:25 Elliptocytes Not Reportable 08/21/17 06:25 Acanthocytes (Spur) Not Reportable 08/21/17 06:25 Rouleaux Not Reportable 08/21/17 06:25 Hemoglobin C Crystals Not Reportable 08/21/17 06:25 Schistocytes Not Reportable 08/21/17 06:25 Malaria parasites Not Reportable 08/21/17 06:25 Percent Retic 1.89 % (0.78-2.58) 08/21/17 06:25 Steven Bodies Not Reportable 08/21/17 06:25 Hem Pathologist Commnt No 08/21/17 06:25 PT 14.0 Sec. (12.2-14.9) 08/19/17 13:12 INR 1.03 (0.87-1.13) 08/19/17 13:12 APTT 72.2 Sec. (24.2-36.6) H* 08/19/17 13:12 D-Dimer < 135.00 ng/mlDDU (0-234) 08/19/17 13:12 Sodium 140 mmol/L (137-145) 08/21/17 06:25 Potassium 4.0 mmol/L (3.6-5.0) D 08/21/17 06:25 Chloride 102.6 mmol/L (98-107) 08/21/17 06:25 Carbon Dioxide 24 mmol/L (22-30) 08/21/17 06:25 Anion Gap 17 mmol/L 08/21/17 06:25 BUN 3 mg/dL (7-17) L 08/21/17 06:25 Creatinine 0.3 mg/dL (0.7-1.2) L 08/21/17 06:25 Estimated GFR > 60 ml/min 08/21/17 06:25 BUN/Creatinine Ratio 10 % 08/21/17 06:25 Glucose 80 mg/dL (65-100) 08/21/17 06:25 Calcium 8.7 mg/dL (8.4-10.2) 08/21/17 06:25 Iron 39 ug/dL (37-170) 08/20/17 00:10 Ferritin 8.5 ng/mL (13.0-400.0) L 08/20/17 00:10 Lactate Dehydrogenase 125 units/L (91-180) 08/19/17 13:12 Total Creatine Kinase 31 units/L (30-135) 08/19/17 13:12 CK-MB (CK-2) < 1.0 ng/mL (0.0-4.0) 08/19/17 13:12 CK-MB (CK-2) Rel Index 3.2 (0-4) 08/19/17 13:12 Troponin T < 0.010 ng/mL (0.00-0.029) 08/19/17 15:09 HCG, Qual Negative (Negative) 08/19/17 13:12
[2017-08-21] MEDS: SODIUM CHLORIDE FLUSH SYRINGE 10 ML IV SCH ×2 (14:30→21:39)
[2017-08-21] MEDS: LOVENOX SUB-Q SCH (21:10)
--- NOTE | 2017-08-21 21:35 | Progress Note ---
Assessment and Plan - Patient Problems (1) Sickle cell pain crisis Current Visit: Yes Status: Acute Plan to address problem: Pain control. (2) Anemia Current Visit: Yes Status: Acute Plan to address problem: Monitor labs daily, and replacement when indicated. (3) Dehydration Current Visit: Yes Status: Acute Plan to address problem: Hydration Subjective Date of service: 08/21/17 Interval history: Patient seen/examined, resting in bed, c/o still nauseated with q12 anti emetic.pain is a bit better. Patient seen/examined, labs reviewed, case d/w patient, c/o feeling more better.Disposition as per you. Objective - Constitutional Vitals: Vital Signs - 12hr 08/21/17 15:30 Temperature 98.7 F Pulse Rate 85 Respiratory 18 Rate Blood Pressure 95/62 O2 Sat by Pulse 99 Oximetry General appearance: Present: no acute distress - EENT Eyes: PERRL, EOM intact ENT: hearing intact, clear oral mucosa Ears: bilateral: normal - Neck Neck: supple, normal ROM - Respiratory Respiratory effort: normal Respiratory: bilateral: CTA - Breasts Breasts: deferred - Cardiovascular Rhythm: regular Heart Sounds: Present: S1 & S2. Absent: gallop, rub Extremities: pulses intact, No edema, normal color, Full ROM - Gastrointestinal General gastrointestinal: Present: soft, non-tender, non-distended, normal bowel sounds Rectal Exam: deferred - Genitourinary Female genitourinary: deferred - Integumentary Integumentary: clear, warm, dry - Musculoskeletal Musculoskeletal: 1, strength equal bilaterally - Neurologic Neurologic: moves all extremities - Psychiatric Psychiatric: memory intact, appropriate mood/affect, intact judgment & insight - Labs CBC & Chem 7: 08/21/17 06:25 08/21/17 06:25 Labs: Abnormal lab results 08/21/17 08/21/17 Range/Units 06:25 06:25 WBC 13.1 H (4.5-11.0) K/mm3 Hgb 9.7 L (10.1-14.3) gm/dl Hct 28.8 L (30.3-42.9) % MCV 57 L (79-97) fl MCH 19 L (28-32) pg RDW 25.7 H (13.2-15.2) % Seg Neutrophils # Man 8.3 H (1.8-7.7) K/mm3 BUN 3 L (7-17) mg/dL Creatinine 0.3 L (0.7-1.2) mg/dL
[2017-08-22] MEDS: DILAUDID IV PRN ×5 (02:42→20:31)
--- NOTE | 2017-08-22 08:45 | Progress Note ---
Assessment and Plan Assessment and plan: --Sickle cell pain crisis; patient continues to have more pain Hematology following, Continue IV fluids, oxygen, pain management, folic acid and hydroxyurea, Hematology following --SIRS [systemic inflammatory response syndrome] Received empiric antibiotics, follow cultures, chest x-ray negative --Sickle cell anemia; patient's hemoglobin is 8.8, closely monitor Transfuse as needed --Leukocytosis, rule out sepsis, continue empiric antibiotics --Ongoing tobacco use; smoking cessation counseling done Nicotine patch as needed --DVT prophylaxis; Lovenox Possible discharge tomorrow if stable History Interval history: Patient seen and examined medical records reviewed Patient is on good pain regimen, however continues to complain of worsening pain Request for more pain medications, patient is teary and agitated Alert awake oriented 3 not in acute distress Vital signs reviewed Hospitalist Physical - Constitutional Vitals: Temp Pulse Resp BP Pulse Ox 99.8 F H 100 H 20 131/62 95 08/22/17 08:30 08/22/17 08:30 08/22/17 08:30 08/22/17 08:30 08/22/17 08:30 General appearance: Present: no acute distress, well-nourished - EENT Eyes: Present: PERRL, EOM intact - Neck Neck: Present: supple, normal ROM - Respiratory Respiratory effort: normal Respiratory: bilateral: diminished, negative: rales, rhonchi, wheezing - Cardiovascular Rhythm: regular Heart Sounds: Present: S1 & S2 - Extremities Extremities: no ischemia, No edema - Abdominal General gastrointestinal: soft, non-tender, non-distended, normal bowel sounds - Integumentary Integumentary: Present: clear, warm - Psychiatric Psychiatric: appropriate mood/affect, cooperative - Neurologic Neurologic: CNII-XII intact, moves all extremities Results - Labs CBC & Chem 7: 08/22/17 12:42 08/21/17 06:25 Labs: Laboratory Last Values WBC 13.1 K/mm3 (4.5-11.0) H 08/21/17 06:25 RBC 5.03 M/mm3 (3.65-5.03) 08/21/17 06:25 Hgb 9.7 gm/dl (10.1-14.3) L 08/21/17 06:25 Hct 28.8 % (30.3-42.9) L 08/21/17 06:25 MCV 57 fl (79-97) L 08/21/17 06:25 MCH 19 pg (28-32) L 08/21/17 06:25 MCHC 34 % (30-34) 08/21/17 06:25 RDW 25.7 % (13.2-15.2) H 08/21/17 06:25 Plt Count 245 K/mm3 (140-440) 08/21/17 06:25 Add Manual Diff Complete 08/21/17 06:25 Total Counted 100 08/21/17 06:25 Seg Neuts % (Manual) 63.0 % (40.0-70.0) 08/21/17 06:25 Band Neutrophils % 0 % 08/21/17 06:25 Lymphocytes % (Manual) 33.0 % (13.4-35.0) 08/21/17 06:25 Reactive Lymphs % (Man) 0 % 08/21/17 06:25 Monocytes % (Manual) 2.0 % (0.0-7.3) 08/21/17 06:25 Eosinophils % (Manual) 2.0 % (0.0-4.3) 08/21/17 06:25 Basophils % (Manual) 0 % (0.0-1.8) 08/21/17 06:25 Metamyelocytes % 0 % 08/21/17 06:25 Myelocytes % 0 % 08/21/17 06:25 Promyelocytes % 0 % 08/21/17 06:25 Blast Cells % 0 % 08/21/17 06:25 Nucleated RBC % Not Reportable 08/21/17 06:25 Seg Neutrophils # Man 8.3 K/mm3 (1.8-7.7) H 08/21/17 06:25 Band Neutrophils # 0.0 K/mm3 08/21/17 06:25 Lymphocytes # (Manual) 4.3 K/mm3 (1.2-5.4) 08/21/17 06:25 Abs React Lymphs (Man) 0.0 K/mm3 08/21/17 06:25 Monocytes # (Manual) 0.3 K/mm3 (0.0-0.8) 08/21/17 06:25 Eosinophils # (Manual) 0.3 K/mm3 (0.0-0.4) 08/21/17 06:25 Basophils # (Manual) 0.0 K/mm3 (0.0-0.1) 08/21/17 06:25 Metamyelocytes # 0.0 K/mm3 08/21/17 06:25 Myelocytes # 0.0 K/mm3 08/21/17 06:25 Promyelocytes # 0.0 K/mm3 08/21/17 06:25 Blast Cells # 0.0 K/mm3 08/21/17 06:25 WBC Morphology Not Reportable 08/21/17 06:25 Hypersegmented Neuts Not Reportable 08/21/17 06:25 Hyposegmented Neuts Not Reportable 08/21/17 06:25 Hypogranular Neuts Not Reportable 08/21/17 06:25 Smudge Cells Not Reportable 08/21/17 06:25 Toxic Granulation Not Reportable 08/21/17 06:25 Toxic Vacuolation Not Reportable 08/21/17 06:25 Dohle Bodies Not Reportable 08/21/17 06:25 Pelger-Huet Anomaly Not Reportable 08/21/17 06:25 Jeanne Rods Not Reportable 08/21/17 06:25 Platelet Estimate Cons 08/21/17 06:25 Clumped Platelets Not Reportable 08/21/17 06:25 Plt Clumps, EDTA Not Reportable 08/21/17 06:25 Large Platelets Few 08/21/17 06:25 Giant Platelets Not Reportable 08/21/17 06:25 Platelet Satelliting Not Reportable 08/21/17 06:25 Plt Morphology Comment Not Reportable 08/21/17 06:25 RBC Morphology Not Reportable 08/21/17 06:25 Dimorphic RBCs Not Reportable 08/21/17 06:25 Polychromasia Not Reportable 08/21/17 06:25 Hypochromasia 2+ 08/21/17 06:25 Poikilocytosis 3+ 08/21/17 06:25 Anisocytosis 2+ 08/21/17 06:25 Microcytosis 2+ 08/21/17 06:25 Macrocytosis Not Reportable 08/21/17 06:25 Spherocytes Not Reportable 08/21/17 06:25 Pappenheimer Bodies Not Reportable 08/21/17 06:25 Sickle Cells Not Reportable 08/21/17 06:25 Target Cells 2+ 08/21/17 06:25 Tear Drop Cells Few 08/21/17 06:25 Ovalocytes Not Reportable 08/21/17 06:25 Stomatocytes 1+ 08/21/17 06:25 Helmet Cells Not Reportable 08/21/17 06:25 [place] Bodies Not Reportable 08/21/17 06:25 [place] Rings Not Reportable 08/21/17 06:25 [place] Cells Not Reportable 08/21/17 06:25 Bite Cells Not Reportable 08/21/17 06:25 Crenated Cell Not Reportable 08/21/17 06:25 Elliptocytes Not Reportable 08/21/17 06:25 Acanthocytes (Spur) Not Reportable 08/21/17 06:25 Rouleaux Not Reportable 08/21/17 06:25 Hemoglobin C Crystals Not Reportable 08/21/17 06:25 Schistocytes Not Reportable 08/21/17 06:25 Malaria parasites Not Reportable 08/21/17 06:25 Percent Retic 1.89 % (0.78-2.58) 08/21/17 06:25 Steven Bodies Not Reportable 08/21/17 06:25 Hem Pathologist Commnt No 08/21/17 06:25 PT 14.0 Sec. (12.2-14.9) 08/19/17 13:12 INR 1.03 (0.87-1.13) 08/19/17 13:12 APTT 72.2 Sec. (24.2-36.6) H* 08/19/17 13:12 D-Dimer < 135.00 ng/mlDDU (0-234) 08/19/17 13:12 Sodium 140 mmol/L (137-145) 08/21/17 06:25 Potassium 4.0 mmol/L (3.6-5.0) D 08/21/17 06:25 Chloride 102.6 mmol/L (98-107) 08/21/17 06:25 Carbon Dioxide 24 mmol/L (22-30) 08/21/17 06:25 Anion Gap 17 mmol/L 08/21/17 06:25 BUN 3 mg/dL (7-17) L 08/21/17 06:25 Creatinine 0.3 mg/dL (0.7-1.2) L 08/21/17 06:25 Estimated GFR > 60 ml/min 08/21/17 06:25 BUN/Creatinine Ratio 10 % 08/21/17 06:25 Glucose 80 mg/dL (65-100) 08/21/17 06:25 Calcium 8.7 mg/dL (8.4-10.2) 08/21/17 06:25 Iron 39 ug/dL (37-170) 08/20/17 00:10 Ferritin 8.5 ng/mL (13.0-400.0) L 08/20/17 00:10 Lactate Dehydrogenase 125 units/L (91-180) 08/19/17 13:12 Total Creatine Kinase 31 units/L (30-135) 08/19/17 13:12 CK-MB (CK-2) < 1.0 ng/mL (0.0-4.0) 08/19/17 13:12 CK-MB (CK-2) Rel Index 3.2 (0-4) 08/19/17 13:12 Troponin T < 0.010 ng/mL (0.00-0.029) 08/19/17 15:09 HCG, Qual Negative (Negative) 08/19/17 13:12
[2017-08-22] MEDS: HYDREA PO SCH ×2 (09:51→22:25)
[2017-08-22] MEDS: FOLVITE PO SCH (09:51)
[2017-08-22] MEDS: LYRICA PO SCH (09:51)
[2017-08-22] MEDS: VITAMIN B-12 SUB-Q SCH (09:52)
[2017-08-22 13:06] LABS: Hematocrit 26.5 % (30.3-42.9); Hemoglobin 8.6 gm/dl (10.1-14.3); Mean Corpuscular HGB Conc 33 % (30-34); Platelet Count 222 K/mm3 (140-440); Red Blood Count 4.55 M/mm3 (3.65-5.03)
[2017-08-22 13:17] LABS: Mean Corpuscular Hemoglobin 19 pg (28-32); Mean Corpuscular Volume 58 fl (79-97); Red Cell Distribution Width 25.3 % (13.2-15.2)
[2017-08-22 14:02] LABS: Anisocytosis 2+; Total Cells Counted 100
[2017-08-22 14:03] LABS: Hypochromasia 2+; Platelet Estimate Consistent w Auto; Poikilocytosis 2+; Stomatocytes 1+; Target Cells 1+
[2017-08-22] MEDS: SODIUM CHLORIDE FLUSH SYRINGE 10 ML IV SCH (15:28)
[2017-08-22] MEDS: D5NS 0.2% 1,000 ML IV SCH (15:28)
[2017-08-22] MEDS ORDERED: PERCOCET 5/325 PO PRN (16:10)
--- NOTE | 2017-08-22 16:41 | Progress Note ---
Assessment and Plan - Patient Problems (1) Sickle cell pain crisis Current Visit: Yes Status: Acute Plan to address problem: Pain control. Oral percocet added. (2) Anemia Current Visit: Yes Status: Acute Plan to address problem: Monitor labs daily, and replacement when indicated. (3) Dehydration Current Visit: Yes Status: Acute Plan to address problem: Hydration Subjective Date of service: 08/22/17 Interval history: Patient seen/examined, resting in bed, c/o still nauseated with q12 anti emetic.pain is a bit better. Patient seen/examined, labs reviewed, case d/w patient, c/o feeling more better.Disposition as per you. Patient seen/examined, resting in bed, ok.C/o pain not controlled , and also not sleeping well even with Restoril. i have included percocet prn to her plan. , will d/c Restoril, and find another sleeping aid. Disposition is still per you. Objective - Constitutional Vitals: Vital Signs - 12hr 08/22/17 08/22/17 06:40 08:30 Temperature 99.8 F H Pulse Rate 100 H Respiratory 20 20 Rate Blood Pressure 131/62 O2 Sat by Pulse 95 Oximetry General appearance: Present: mild distress, well-nourished - EENT Eyes: PERRL, EOM intact ENT: hearing intact, clear oral mucosa Ears: bilateral: normal - Neck Neck: supple, normal ROM - Respiratory Respiratory effort: normal Respiratory: bilateral: CTA - Breasts Breasts: deferred - Cardiovascular Rhythm: regular Heart Sounds: Present: S1 & S2. Absent: gallop, rub Extremities: pulses intact, No edema, normal color, Full ROM - Gastrointestinal General gastrointestinal: Present: soft, non-tender, non-distended, normal bowel sounds Rectal Exam: deferred - Genitourinary Female genitourinary: deferred - Integumentary Integumentary: clear, warm, dry - Musculoskeletal Musculoskeletal: 1, strength equal bilaterally - Neurologic Neurologic: moves all extremities - Psychiatric Psychiatric: memory intact, appropriate mood/affect, intact judgment & insight - Labs CBC & Chem 7: 08/22/17 12:42 08/21/17 06:25 Labs: Abnormal lab results 08/22/17 Range/Units 12:42 Hgb 8.6 L (10.1-14.3) gm/dl Hct 26.5 L (30.3-42.9) % MCV 58 L (79-97) fl MCH 19 L (28-32) pg RDW 25.3 H (13.2-15.2) %
[2017-08-22] MEDS: PERCOCET 5/325 PO PRN (17:55)
[2017-08-22] MEDS: PHENERGAN PO PRN (17:55)
[2017-08-22] MEDS ORDERED: DESYREL PO SCH (22:00)
[2017-08-22] MEDS: LOVENOX SUB-Q SCH (22:26)
[2017-08-23] MEDS: DILAUDID IV PRN ×3 (00:29→08:39)
[2017-08-23] MEDS: SODIUM CHLORIDE FLUSH SYRINGE 10 ML IV SCH ×2 (00:32→09:49)
[2017-08-23] MEDS: PERCOCET 5/325 PO PRN (02:44)
[2017-08-23 08:01] VITALS: BP 98/64
--- NOTE | 2017-08-23 09:00 | Discharge Summary ---
Providers - Providers Date of Admission: 08/19/17 14:49 Date of discharge: 08/23/17 Attending physician: TRISH MAYA 08/19/17 15:00 Consult to Physician [CONS] Routine Comment: Consulting Provider: TIERNEY PRATHER Physician Instructions: Reason For Exam: sickle cell crisis Primary care physician: [employer] Hospitalization Condition: Good Disposition: DC-01 TO HOME OR SELFCARE Core Measure Documentation - Palliative Care Palliative Care/ Comfort Measures: Not Applicable - Core Measures Any of the following diagnoses?: none Exam - Constitutional Vitals: Temp Pulse Resp BP Pulse Ox 98.0 F 66 18 98/64 100 08/23/17 07:56 08/23/17 07:56 08/23/17 08:39 08/23/17 07:56 08/23/17 07:56 Plan Activity: no restrictions Diet: low fat, low cholesterol, low salt Additional Instructions: 1.Follow up with PCP in 1 week. 2.Follow up with Dr. Hinton, your [facility] in 3-5 days. Follow up with: PRIMARY CARE, [Primary Care Provider] - 3-5 Days Prescriptions: Oxycodone HCl/Acetaminophen [Percocet 10/325 mg] 1 each PO TID PRN #12 tablet PRN Reason: Pain Promethazine [Phenergan TAB] 25 mg PO Q8H PRN #20 tablet PRN Reason: Nausea And Vomiting
[2017-08-23] MEDS: VITAMIN B-12 SUB-Q SCH (09:47)
[2017-08-23] MEDS: FOLVITE PO SCH (09:47)
[2017-08-23] MEDS: HYDREA PO SCH (09:48)
[2017-08-23] MEDS ORDERED: FLUSH HEPARIN IV ONE (11:00)
== END 2017-08-23 11:06 | disposition home or self-care (01) | DRG 812 ==
LOC: ED 08:43 → 3A 14:49
PROVIDERS: ADMIT Internal Medicine; ATTEND Internal Medicine
DX: D57.00 Hb-SS disease with crisis, unspecified (principal); R65.10 Systemic inflammatory response syndrome (SIRS) of non-infectious origin without acute organ dysfunction; F17.213 Nicotine dependence, cigarettes, with withdrawal; Z88.5 Allergy status to narcotic agent; Z88.8 Allergy status to other drugs, medicaments and biological substances; Z90.49 Acquired absence of other specified parts of digestive tract; Z98.51 Tubal ligation status; E66.9 Obesity, unspecified; Z68.33 Body mass index [BMI] 33.0-33.9, adult; Z82.49 Family history of ischemic heart disease and other diseases of the circulatory system; M79.7 Fibromyalgia; E86.0 Dehydration; Z71.6 Tobacco abuse counseling
CPT/HCPCS: 36415; 71045; 80048; 82550; 82553; 82728; 83540; 83615; 84484; 84703; 85007; 85025; 85045; 85379; 85610; 85730; 87086; 93005; 93010; 96374; 96375; 99406; J1170; J1642; J1650; J1956; J2405; J2765; J3420; J7030; Q0169